=== PATIENT | female | born 1960 | race Caucasian/White ===

== ENCOUNTER 2016-10-25 09:28 | Inpatient (IN) | payer SELFPAY ==
[2016-10-25] VITALS (10 sets, daily range): BP systolic 136–191; BP diastolic 79–110; PULSE 82–103; RESP 18–20; TEMP 97.5–98.7; O2SAT 96–99
[~2016-10-25] VITALS: Ht 172.7 cm; Wt 77.0 kg
[~2016-10-25 09:28] MED LIST: IBUP800 PO; TRAM50TA PO
[2016-10-25] MEDS ORDERED: NITROGLYCERIN 0.4 MG SL 25 TABS/BTL SL STA (09:55)
[2016-10-25] MEDS ORDERED: ASPIRIN 81 MG CHEW TAB PO STA (09:55)
[2016-10-25] MEDS ORDERED: SODIUM CHLOR 0.9% 1000 ML INJ 1,000 ML IV ONE (09:55)
[2016-10-25] MEDS ORDERED: HEPARIN SODIUM - IV 10,000 UNITS/10 ML VIAL IV STA (09:55)
[2016-10-25] MEDS ORDERED: NITROGLYCERIN-D5W 50 MG/250 ML 250 ML IV SCH ×2 (10:00→11:00)
[2016-10-25] MEDS ORDERED: SODIUM CHLORIDE 0.9% FLUSH 10 ML FLUSH IVF PRN (10:00)
--- NOTE | 2016-10-25 10:01 | PD ---
HPI Chief Complaint: STEMI Alert Time Seen by Provider: 09:55 Travel History International Travel<30 days: No Contact w/Intl Traveler<30days: No Traveled to known affect area: No History of Present Illness HPI 56-year-old female with history of previous CAD, presents to the ER today brought in by her son because of chest pains that started at 2 PM yesterday. She states is currently an 8-1/2 out of 10. She states it radiates down both arms. She denies any shortness of breath, fevers, vomiting, abdominal pains, or any other symptoms. Initial EKG shows a ST elevation [place] in the inferior leads. Modifying Factors: None Associated Signs & Symptoms: STEMI alert Risk Factors: CAD PFSH Past Medical History Blood Disorders: No Cancer: No Cardiovascular Problems: Yes Endocrine: No Glaucoma: No Genitourinary: Yes Immune Disorder: No Musculoskeletal: No Neurologic: No Respiratory: No Past Surgical History Gynecologic Surgery: Yes (HYSTERECTOMY) Hysterectomy: Yes Social History Alcohol Use: Yes (SOCIAL) Tobacco Use: Yes (1/2PPD) Substance Use: No Allergies-Medications (Allergen,Severity, Reaction): Coded Allergies: diphenhydramine (Unverified Allergy, Intermediate, rash,hives,itching, ) Reported Meds & Prescriptions Reported Meds & Active Scripts Active Tramadol Hcl (Tramadol HCl) 50 Mg Tab 50 Mg PO Q4H PRN Motrin 800 Mg Tab (Ibuprofen) 800 Mg Tab 800 Mg PO Q8H PRN 10 Days Review of Systems Except as stated in HPI: all other systems reviewed are Neg Physical Exam Narrative GENERAL: Well-developed middle age white female patient currently in moderate distress. Awake and oriented 3. SKIN: Focused skin assessment warm/diaphoretic. HEAD: Atraumatic. Normocephalic. EYES: Pupils equal and round. No scleral icterus. No injection or drainage. ENT: No nasal bleeding or discharge. Mucous membranes pink and moist. NECK: Trachea midline. No JVD. CARDIOVASCULAR: Regular rate and rhythm. No murmur appreciated. Pulses are present and equal bilaterally. RESPIRATORY: No accessory muscle use. Clear to auscultation. Breath sounds equal bilaterally. GASTROINTESTINAL: Abdomen soft, non-tender, nondistended. Hepatic and splenic margins not palpable. MUSCULOSKELETAL: No obvious deformities. No clubbing. No cyanosis. No edema. NEUROLOGICAL: Awake and alert. No obvious cranial nerve deficits. Motor grossly within normal limits. Normal speech. PSYCHIATRIC: Appropriate mood and affect; insight and judgment normal. Data Data Last Documented VS Vital Signs Date Time Temp Pulse Resp B/P Pulse Ox O2 Delivery O2 Flow Rate FiO2 10/25/16 10:00 100 Nasal Cannula 2 10/25/16 09:29 97.9 103 20 191/110 Orders Electrocardiogram (10/25/16 ) Troponin I (10/25/16 09:55) Ckmb (Isoenzyme) Profile (10/25/16 09:55) Complete Blood Count With Diff (10/25/16 09:55) I-Stat Profile (10/25/16 09:55) I-Stat Creatinine (10/25/16 09:55) Calcium (10/25/16 09:55) Magnesium (Mg) (10/25/16 09:55) Prothrombin Time / Inr (Pt) (10/25/16 09:55) Act Partial Throm Time (Ptt) (10/25/16 09:55) B-Type Natriuretic Peptide (10/25/16 09:55) Chest, Single Ap (10/25/16 09:55) Electrocardiogram (10/25/16 09:55) Oxygen Administration (10/25/16 09:55) Iv Access Insert/Monitor (10/25/16 09:55) Oximetry (10/25/16 09:55) Sodium Chlor 0.9% 1000 Ml Inj (Ns 1000 M (10/25/16 09:55) Sodium Chloride 0.9% Flush (Ns Flush) (10/25/16 10:00) Aspirin Chew (Aspirin Chew) (10/25/16 09:55) Nitroglycerin Sl (Nitrostat Sl) (10/25/16 09:55) Nitroglycerin-Dextrose Inj (Nitroglyceri (10/25/16 10:00) Heparin Inj (Heparin Inj) (10/25/16 09:55) MDM Medical Decision Making Medical Screen Exam Complete: Yes Emergency Medical Condition: Yes Medical Record Reviewed: Yes Interpretation(s) EKG shows ST elevations in the inferior leads and depressions in aVL, V1 through the 3. Concerning for ST elevation [place]. Differential Diagnosis STEMI alert Narrative Course STEMI alert protocol was initiated. Case was initially discussed with Dr. Scott who had done a catheterization on her in 2006 but he states that she is not currently actively following up with him and he recommends that on-call ingot car operator takes the case. Patient was seen by Dr. Myrick in the ER with plans for catheterization. Patient admitted to his service as a STEMI. Diagnosis Primary Impression: STEMI (ST elevation myocardial infarction) Admitting Information Admitting Physician Requests: it Darryl Anaya MD Oct 25, 2016 10:01
[2016-10-25 10:16] LABS: I-STAT POTASSIUM 3.1 MMOL/L (3.5-4.9); I-STAT SODIUM 142 MMOL/L (138-146)
[2016-10-25 10:19] LABS: AUTOMATED NEUTROPHIL # 12.2 TH/MM3 (1.8-7.7); BASOPHIL # 0.1 TH/MM3 (0-0.2); BASOPHIL % 0.5 % (0.0-2.0); EOSINOPHIL # 0.1 TH/MM3 (0-0.4); EOSINOPHIL % 0.8 % (0.0-4.0); HEMATOCRIT 49.7 % (35.0-46.0); HEMO FLAGS DIFF FINAL; LYMPH % 14.7 % (9.0-44.0); LYMPHOCYTE # 2.3 TH/MM3 (1.0-4.8); MEAN CELL VOLUME 95.4 FL (80.0-100.0); MEAN CORPUSCULAR HEMOGLOBIN 32.3 PG (27.0-34.0); MEAN CORPUSCULAR HGB CONC 33.9 % (32.0-36.0); PLATELET COUNT 255 TH/MM3 (150-450); RED BLOOD COUNT 5.21 MIL/MM3 (4.00-5.30); RED CELL DISTRIBUTION WIDTH 13.7 % (11.6-17.2); WHITE BLOOD COUNT 15.7 TH/MM3 (4.0-11.0)
[2016-10-25] MEDS ORDERED: ONDANSETRON HCL 4 MG/2 ML VIAL ONE (10:19)
[2016-10-25] MEDS ORDERED: MORPHINE SULFATE 8 MG/ML INJ ONE (10:19)
[2016-10-25] MEDS ORDERED: MIDAZOLAM HCL 2 MG/2 ML VIAL ONE (10:22)
[2016-10-25] MEDS ORDERED: BIVALIRUDIN 250 MG VIAL ONE (10:25)
[2016-10-25 10:27] LABS: APTT (PATIENT) 23.1 SEC (24.3-30.1); PROTHROMBIN TIME - PATIENT 10.5 SEC (9.8-11.6)
--- NOTE | 2016-10-25 10:33 | RADRPT ---
EXAM DATE/TIME: 10/25/2016 09:58 [facility] COMPARISON: CHEST SINGLE AP, March 11, 2014, 9:26. INDICATIONS : Stemi alert. Chest pain today. MEDICAL HISTORY : Unobtainable. SURGICAL HISTORY : Unobtainable. ENCOUNTER: Initial ACUITY: 1 day PAIN SCORE: 10/10 LOCATION: Bilateral chest FINDINGS: A single view of the chest demonstrates the lungs to be symmetrically aerated without evidence of mas s, infiltrate or effusion. The cardiomediastinal contours are unremarkable. Osseous structures are intact. CONCLUSION: Normal examination. Tom Pearce Jr., MD on October 25, 2016 at 10:31 Board Certified Radiologist. This report was verified electronically.
[2016-10-25] MEDS ORDERED: TICAGRELOR 90 MG TAB PO ONE (10:38)
[2016-10-25 10:41] LABS: MAGNESIUM 1.7 MG/DL (1.5-2.5)
[2016-10-25 10:43] LABS: CREATINE KINASE 182 U/L (26-192)
[2016-10-25] MEDS ORDERED: TEMAZEPAM 15 MG CAP PO PRN (11:00)
[2016-10-25] MEDS ORDERED: MISC INFORMATION XX ONE (11:00)
[2016-10-25] MEDS ORDERED: oxyCODONE/ACETAMINOPHEN 5 MG/325 MG TAB PO PRN (11:00)
[2016-10-25] MEDS ORDERED: ONDANSETRON HCL 4 MG/2 ML VIAL IV PRN (11:00)
[2016-10-25] MEDS ORDERED: SODIUM CHLORIDE 0.9% FLUSH 10 ML FLUSH IV FLUSH PRN (11:00)
[2016-10-25 11:04] LABS: CKMB 20.6 NG/ML (0.5-3.6)
--- NOTE | 2016-10-25 11:19 | MH ---
cc: SHEILA BLANKENSHIP M.D. DATE OF ADMISSION: 10/25/2016 ADMITTING DIAGNOSIS: 1. Acute inferoposterior myocardial infarction. 2. Chronic tobacco abuse. CHIEF COMPLAINT Chest pain since 02:00 p.m. yesterday. HISTORY OF PRESENT ILLNESS Zandra Yarbrough is a 56-year-old woman who has not been to a doctor in years. She said she had an angioplasty early after 1989. All I could find in her records here was a cardiac catheterization October 30, [address]. She had 25-40% mid-LAD disease with normal ejection fraction at that time. The patient has continued to smoke a pack a day. She developed acute chest pain about 2 o'clock in the afternoon yesterday which waxed and waned and then became critically severe before she presented to the ER. She was on no medications prior to admission. PAST SURGICAL HISTORY Past surgical history includes a vaginal hysterectomy. ALLERGIES She describes having HIVES ONCE FROM CT SCAN DYE. SOCIAL HISTORY She is . She has a son, Pierre Yarbrough. She smokes as described above. REVIEW OF SYSTEMS Negative for bleeding. The remaining review of systems negative. PHYSICAL EXAMINATION GENERAL: Severely distressed middle-age white female. VITAL SIGNS: Charted. HEENT: Exam unremarkable. NECK: Neck is supple. CHEST: Clear to auscultation. CARDIAC: S1, S2, S4, regular rate and rhythm. ABDOMEN: Soft, nontender. EXTREMITIES: No clubbing, cyanosis or edema. Pulses are intact. EKG Shows an acute inferoposterior STEMI with ST-segment elevation inferiorly as well as V5-V6 and ST depression in AVL and V2. The only leads not showing ST-segment shifting are leads 1 and lead V3 and V4, making this a high-risk infarct. LABORATORY DATA Charted. IMPRESSION Acute inferior STEMI. PLAN Please see labeling specialist procedure note. Right coronary artery has been stented. Will continue aspirin and Brilinta, introduce NANO inhibitor and beta blockers. Hemodynamics and heart rate per minute. Check serum lipid values and add statin therapy. The patient has been counseled to quit smoking. Sheila Blankenship MD VEW/TLL /10:56 AM /11:00 AM
--- NOTE | 2016-10-25 11:31 | MA ---
cc: SHEILA BLANKENSHIP M.D. DATE: 10/25/2016 PROCEDURE PERFORMED Left heart catheterization, left ventriculography, coronary angiography, balloon angioplasty and stenting of the mid right coronary artery, right femoral angiography with Angio-Seal placement. INDICATION FOR PROCEDURE Zandra Yarbrough came in through the ER with an acute inferior STEMI with ST-segment elevation of multiple leads and 10/10 chest pain. She was brought emergently to the laboratory equipment cleaner and prepped and draped in sterile fashion. She did receive 4 of morphine and 1 of Versed IV, but was still very awake. Using 1% lidocaine for local anesthesia a 6.5 Vincentian sheath was easily inserted in the right femoral artery. Left coronary angiography was performed using a left 4 Amisha catheter and then used a right 4 Amsiha guiding catheter to image the right coronary artery. The right coronary artery was found to be occluded. Intravenous Angiomax was started across the occlusion with a BMW wire and then predilated it with a 3.0 x 20 balloon. I then stented the vessel using a 3.5 but 15 mm Resolute stent at 12 atmospheres. This restored POLY-III flow. The patient's chest pain improved. ST-segment elevation persisted. Repeat angiography showed stable vessel. The guiding catheter was removed. Angiography with the right leg was obtained via the sheath followed by uncomplicated Angio-Seal placement. She was loaded with Brilinta. She will be moved to the [facility] floor. There were no complications. FINDINGS HEMODYNAMICS Left ventricular pressure was 160/7 with an end-diastolic pressure of 26. Aortic pressure was 163/87 with a mean of 120. There was no gradient during pullback from the left ventricle to the aorta. LEFT VENTRICULOGRAPHY Left ventriculography shows extensive inferior akinesis. EF is only 40%. CORONARY ANGIOGRAPHY The left main coronary artery is normal. The left anterior descending artery has about 20% mid irregularity. The diagonal branch has irregularities only. The circumflex artery has about 30% mid stenosis involving the proximal circumflex and the origin of the single major marginal branch. The right coronary artery is totally occluded in its midsegment. RESULTS OF STENTING Following stenting of the mid right coronary artery there is a 0% residual stenosis with POLY-III flow. There is diffuse disease of the proximal right coronary artery leading up to the stent but this was felt not to need intervention. That segment of disease appears to only be about 30%. CONCLUSIONS 1. Moderate LV dysfunction from an inferior STEMI. 2. Single-vessel occlusion of the right coronary artery successfully stented with a drug-eluting stent. PLAN Will continue aspirin and Brilinta. Will introduce NANO inhibitor and beta brian as hemodynamics permit. The patient has been counseled to quit smoking. Will check her serum lipids and initiate statin therapy as appropriate. MD GRISEL Jenkins/CHITO /10:52 AM /11:16 AM
[2016-10-25] MEDS ORDERED: BIVALIRUDIN INJ 250 MG in SODIUM CHLORIDE 0.9% INJ 50 ML IV SCH (14:00)
[2016-10-25] MEDS ORDERED: SODIUM CHLOR 0.9% 1000 ML INJ 1,000 ML IV SCH (14:00)
[2016-10-25] MEDS ORDERED: IOHEXOL 350 MG/ML 100 ML BTL (for Cath Lab) OTHER ONE (14:16)
--- NOTE | 2016-10-25 14:59 | PD.CONS ---
[facility] By Dr. Yang Myrick Reason for Consult Medical management Primary Care Physician No Primary Care Physician Diagnoses: History of Present Illness This is a pleasant 56 y/o Female with previous CAD, presents to the ER today brought in by her son because of chest pains that started at 2 PM yesterday, Seen by automotive sales specialist with Diagnosis of Acute Inferoposterior FL, as per Cardiology record the patient Angioplasty early after 1989, Cardiac Catheterization October, EKG with inferoposterior STEMI with ST segment elevation inferiorly as well as V5-V6 and ST depression in AVL and V2 , Status post PCI and Right Coronary Artery Stent, recommended to continue Aspirin, Brilinta, NANO inhibitor and Beta Blockers started, Seen in her bedroom no complaint, denies chest pain. strongly recommended to stop smoking, get good habits exercise and diet. Review of Systems Constitutional: DENIES: Fever, Chills, Change in appetite Endocrine: DENIES: Heat/cold intolerance Eyes: DENIES: Blurred vision, Eye pain Except as stated in HPI: all other systems reviewed are Neg Past Family Social History Allergies: Coded Allergies: diphenhydramine (Unverified Allergy, Intermediate, rash,hives,itching, ) Past Medical History CAD Past Surgical History LUCÍA Reported Medications Reported Meds & Active Scripts Active No Active Prescriptions or Reported Medications Active Ordered Medications Current Medications Medications (Trade) Dose Ordered Sig/Giulia Route Start Time Stop Time Status Last Admin (NS Flush) 2 ml UNSCH PRN IVF 10/25/16 10:00 (NS Flush) 2 ml UNSCH PRN IV FLUSH 10/25/16 11:00 (NS Flush) 2 ml BID IV FLUSH 10/25/16 21:00 (Tylenol) 325 mg Q4H PRN PO 10/25/16 11:00 (Percocet 5-325 Mg) 1 tab Q4H PRN PO 10/25/16 11:00 (Restoril) 15 mg HS PRN PO 10/25/16 11:00 (Aspirin Chew) 81 mg DAILY PO 10/26/16 09:00 Ticagrelor 90 mg 90 mg BID PO 10/26/16 09:00 (Nitroglycerin-Dextrose Inj) 250 ml @ 0 mls/hr TITRATE IV 10/25/16 11:00 (Zofran Inj) 4 mg Q4H PRN IV 10/25/16 11:00 (Coreg) 3.125 mg Q8HR PO 10/25/16 14:00 (Prinivil) 5 mg DAILY PO 10/26/16 09:00 Family History Mother with CAD Father with Cancer do not know which one. Social History Alcohol abuse socially Tobacco dependence half pack daily. Physical Exam Vital Signs Vital Signs Date Time Temp Pulse Resp B/P Pulse Ox O2 Delivery O2 Flow Rate FiO2 10/25/16 10:00 100 Nasal Cannula 2 10/25/16 09:29 97.9 103 20 191/110 97 Room Air Physical Exam GENERAL: Well-developed, no acute distress. SKIN: Focused skin assessment warm/diaphoretic. HEAD: Atraumatic. Normocephalic. EYES: Pupils equal and round. No scleral icterus. No injection or drainage. ENT: No nasal bleeding or discharge. Mucous membranes pink and moist. NECK: Trachea midline. No JVD. CARDIOVASCULAR: Regular rate and rhythm. No murmur appreciated. Pulses are present and equal bilaterally. RESPIRATORY: No accessory muscle use. Clear to auscultation. Breath sounds equal bilaterally. GASTROINTESTINAL: Abdomen soft, non-tender, nondistended. Hepatic and splenic margins not palpable. MUSCULOSKELETAL: No obvious deformities.Right inguinal area dressed, no hemorrhage, no ecchymosis. NEUROLOGICAL: Awake and alert. No obvious cranial nerve deficits. Motor grossly within normal limits. Normal speech. PSYCHIATRIC: Appropriate mood and affect; insight and judgment normal. Laboratory Laboratory Tests Test 10/25/16 09:55 White Blood Count 15.7 Red Blood Count 5.21 Hemoglobin 16.9 Bedside Hemoglobin 17.3 Hematocrit 49.7 Bedside Hematocrit 51.0 Mean Corpuscular Volume 95.4 Mean Corpuscular Hemoglobin 32.3 Mean Corpuscular Hemoglobin 33.9 Concent Red Cell Distribution Width 13.7 Platelet Count 255 Mean Platelet Volume 10.5 Neutrophils (%) (Auto) 78.0 Lymphocytes (%) (Auto) 14.7 Monocytes (%) (Auto) 6.0 Eosinophils (%) (Auto) 0.8 Basophils (%) (Auto) 0.5 Neutrophils # (Auto) 12.2 Lymphocytes # (Auto) 2.3 Monocytes # (Auto) 0.9 Eosinophils # (Auto) 0.1 Basophils # (Auto) 0.1 CBC Comment DIFF FINAL Differential Comment Prothrombin Time 10.5 Prothromb Time International 1.0 Ratio Activated Partial 23.1 Thromboplast Time Bedside Sodium 142 Bedside Potassium 3.1 Bedside Chloride 104 Bedside Blood Urea Nitrogen 11 Bedside Creatinine 0.7 Bedside Glucose 153 Calcium Level 10.8 Magnesium Level 1.7 Total Creatine Kinase 182 Creatine Kinase MB 20.6 Troponin I 1.78 B-Type Natriuretic Peptide 131 Result Diagram: 10/25/16954 Imaging Last Impressions Chest X-Ray 10/25/16954 Signed Impressions: Service Date/Time: Tuesday, October 25, 2016 09:58 - CONCLUSION: Normal examination. Tom Pearce Jr., MD Assessment and Plan Assessment and Plan 1. STEMI as Acute Inferoposterior FL, as per Cardiology record the patient Angioplasty early after 1989, Cardiac Catheterization October, EKG with inferoposterior STEMI with ST segment elevation inferiorly as well as V5-V6 and ST depression in AVL and V2, Status post PCI and Right Coronary Artery Stent, recommended to continue Aspirin, Brilinta, NANO inhibitor and Beta Blockers started. 2. Tobacco dependence strongly recommended to stop smoking, not possible to give Nicotine patch due to ACS 3. History of Hyperlipidemia DVT prophylaxis SCDs Laboratory TSH, Free T4, Lipid profile, hemoglobin A1C, Vitamin B1, Vitamin D. follow renal function in am tomorrow Walter Mora MD Oct 25, 2016 14:59
[2016-10-25] MEDS: RESP: IPRATROPIUM 0.5 MG/2.5 ML NEB NEB SCH ×2 (16:47→19:59)
[2016-10-25] MEDS: guaiFENesin E.R. 600 MG TAB PO SCH (19:59)
[2016-10-25] MEDS: SODIUM CHLORIDE 0.9% FLUSH 10 ML FLUSH IV FLUSH SCH (19:59)
[2016-10-25] MEDS: ACETAMINOPHEN 325 MG TAB PO PRN (20:03)
[2016-10-25 21:34] LABS: FREE T4 1.19 NG/DL (0.76-1.46)
[2016-10-25] MEDS: CARVEDILOL 3.125 MG TAB PO SCH (22:05)
[2016-10-26] VITALS (19 sets, daily range): BP systolic 93–125; BP diastolic 67–80; PULSE 76–109; RESP 18; TEMP 98.2–98.7; O2SAT 95–99
[2016-10-26] MEDS: RESP: IPRATROPIUM 0.5 MG/2.5 ML NEB NEB SCH ×6 (00:05→19:46)
[2016-10-26 04:18] LABS: AUTOMATED NEUTROPHIL # 10.1 TH/MM3 (1.8-7.7); BASOPHIL # 0.1 TH/MM3 (0-0.2); BASOPHIL % 0.4 % (0.0-2.0); EOSINOPHIL # 0.1 TH/MM3 (0-0.4); HEMATOCRIT 42.9 % (35.0-46.0); HEMO FLAGS DIFF FINAL; LYMPH % 20.5 % (9.0-44.0); MEAN CELL VOLUME 94.5 FL (80.0-100.0); MEAN CORPUSCULAR HEMOGLOBIN 32.7 PG (27.0-34.0); MEAN CORPUSCULAR HGB CONC 34.6 % (32.0-36.0); MONO % 8.9 % (0.0-8.0); NEUT % 69.2 % (16.0-70.0); PLATELET COUNT 199 TH/MM3 (150-450); RED BLOOD COUNT 4.54 MIL/MM3 (4.00-5.30); RED CELL DISTRIBUTION WIDTH 13.2 % (11.6-17.2); WHITE BLOOD COUNT 14.7 TH/MM3 (4.0-11.0)
[2016-10-26 05:10] LABS: BICARBONATE 26.9 MEQ/L (21.0-32.0); HDL CHOLESTEROL 28.3 MG/DL (40.0-60.0)
[2016-10-26 05:15] LABS: POTASSIUM 2.9 MEQ/L (3.5-5.1)
[2016-10-26 05:33] LABS: CKMB 120.9 NG/ML (0.5-3.6)
[2016-10-26] MEDS ORDERED: POTASSIUM CHLORIDE 20 MEQ CONTROLLED RELEASE TAB PO ONE ×2 (06:00→15:00)
[2016-10-26] MEDS: POTASSIUM CHLOR 20 MEQ PREMIX 100 ML IV SCH ×2 (06:15→08:00)
[2016-10-26] MEDS: CARVEDILOL 3.125 MG TAB PO SCH ×3 (06:17→21:48)
[2016-10-26] MEDS: ACETAMINOPHEN 325 MG TAB PO PRN ×2 (08:23→21:51)
[2016-10-26] MEDS: ASPIRIN 81 MG CHEW TAB PO SCH (08:23)
[2016-10-26] MEDS: LISINOPRIL 5 MG TAB PO SCH (08:23)
[2016-10-26] MEDS: TICAGRELOR 90 MG TAB PO SCH ×2 (08:24→21:48)
[2016-10-26] MEDS: SODIUM CHLORIDE 0.9% FLUSH 10 ML FLUSH IV FLUSH SCH ×2 (08:24→21:50)
[2016-10-26] MEDS: guaiFENesin E.R. 600 MG TAB PO SCH ×2 (08:24→21:00)
--- NOTE | 2016-10-26 08:55 | EKG ---
Date Performed: 10/26/2016 Time Performed: 06:31:04 PTAGE: 56 years EKG: CONSIDER ACUTE ST ELEVATION PR Sinus rhythm Inferior ST elevation, CONSIDER ACUTE INFARCT Anteroseptal ST depression is probably reciprocal to i nferior infarct ST junctional depression is nonspecific Abnormal ECG PREVIOUS TRACING : 10/25/2016 09.48 Compared to prior tracing no significant change DOCTOR: Terry Rhodes Interpretating Date/Time 10/26/2016 08:51:28
--- NOTE | 2016-10-26 10:22 | PD.CARD.PN ---
Subjective Subjective Remarks no angina Objective Medications Current Medications Medications (Trade) Dose Ordered Sig/Giulia Route Start Time Stop Time Status Last Admin (NS Flush) 2 ml UNSCH PRN IVF 10/25/16 10:00 (NS Flush) 2 ml UNSCH PRN IV FLUSH 10/25/16 11:00 (NS Flush) 2 ml BID IV FLUSH 10/25/16 21:00 10/26/16 08:24 (Tylenol) 325 mg Q4H PRN PO 10/25/16 11:00 10/26/16 08:23 (Percocet 5-325 Mg) 1 tab Q4H PRN PO 10/25/16 11:00 (Restoril) 15 mg HS PRN PO 10/25/16 11:00 (Aspirin Chew) 81 mg DAILY PO 10/26/16 09:00 10/26/16 08:23 Ticagrelor 90 mg 90 mg BID PO 10/26/16 09:00 10/26/16 08:24 (Nitroglycerin-Dextrose Inj) 250 ml @ 0 mls/hr TITRATE IV 10/25/16 11:00 (Zofran Inj) 4 mg Q4H PRN IV 10/25/16 11:00 10/25/16 19:59 (Coreg) 3.125 mg Q8HR PO 10/25/16 14:00 10/26/16 06:17 (Prinivil) 5 mg DAILY PO 10/26/16 09:00 10/26/16 08:23 (Mucinex Er) 600 mg BID PO 10/25/16 21:00 10/26/16 08:24 Vital Signs / I&O Vital Signs Date Time Temp Pulse Resp B/P Pulse Ox O2 Delivery O2 Flow Rate FiO2 10/26/16 08:00 98.3 94 18 118/80 96 10/26/16 06:00 86 10/26/16 05:00 86 10/26/16 04:00 90 10/26/16 03:20 97 10/26/16 03:00 98.7 90 18 125/69 97 10/26/16 03:00 109 10/26/16 02:00 82 10/26/16 01:00 98 10/26/16 00:08 97 10/26/16 00:00 80 10/25/16 23:00 98.7 89 18 136/79 98 10/25/16 23:00 92 10/25/16 22:00 86 10/25/16 21:00 84 10/25/16 20:00 86 10/25/16 19:59 96 21 10/25/16 19:00 93 10/25/16 19:00 97.5 83 18 147/87 98 10/25/16 16:51 98 Nasal Cannula 2.00 10/25/16 16:00 97.7 82 18 162/96 99 10/25/16 11:00 97.7 98 18 158/101 97 I/O 10/25/16 10/25/16 10/25/16 10/26/16 10/26/16 10/26/16 06:59 14:59 22:59 06:59 14:59 22:59 Intake Total 240 ml Output Total 600 ml Balance -360 ml Intake Oral 240 ml Output Urine Total 600 ml Physical Exam GENERAL: Well developed, well nourished. No acute distress. HEENT: Jugular venous pressure is normal. CHEST: Lungs clear to auscultation bilaterally. Unlabored respiratory effort. CARDIAC: Regular rate and rhythm without S3, S4, or murmur. ABDOMEN: Soft, nontender, no hepatosplenomegaly. Bowel sounds present. EXTREMITIES: No clubbing, cyanosis, or edema. Laboratory Laboratory Tests Test 10/26/16 03:56 White Blood Count 14.7 TH/MM3 Red Blood Count 4.54 MIL/MM3 Hemoglobin 14.8 GM/DL Hematocrit 42.9 % Mean Corpuscular Volume 94.5 FL Mean Corpuscular Hemoglobin 32.7 PG Mean Corpuscular Hemoglobin 34.6 % Concent Red Cell Distribution Width 13.2 % Platelet Count 199 TH/MM3 Mean Platelet Volume 10.2 FL Neutrophils (%) (Auto) 69.2 % Lymphocytes (%) (Auto) 20.5 % Monocytes (%) (Auto) 8.9 % Eosinophils (%) (Auto) 1.0 % Basophils (%) (Auto) 0.4 % Neutrophils # (Auto) 10.1 TH/MM3 Lymphocytes # (Auto) 3.0 TH/MM3 Monocytes # (Auto) 1.3 TH/MM3 Eosinophils # (Auto) 0.1 TH/MM3 Basophils # (Auto) 0.1 TH/MM3 CBC Comment DIFF FINAL Differential Comment Sodium Level 140 MEQ/L Potassium Level 2.9 MEQ/L Chloride Level 105 MEQ/L Carbon Dioxide Level 26.9 MEQ/L Anion Gap 8 MEQ/L Blood Urea Nitrogen 14 MG/DL Creatinine 0.67 MG/DL Estimat Glomerular Filtration 92 ML/MIN Rate Random Glucose 106 MG/DL Calcium Level 9.0 MG/DL Total Creatine Kinase 1153 U/L Creatine Kinase MB 120.9 NG/ML Creatine Kinase MB % 10.5 % Triglycerides Level 317 MG/DL Cholesterol Level 214 MG/DL LDL Cholesterol 122 MG/DL HDL Cholesterol 28.3 MG/DL Cholesterol/HDL Ratio 7.56 RATIO Assessment and Plan Problem List: (1) ST elevation (STEMI) myocardial infarction involving right coronary artery (2) Tobacco abuse (3) Stented coronary artery (4) Hypokalemia Assessment and Plan: replete Yang Myrick MD Oct 26, 2016 10:22
--- NOTE | 2016-10-26 15:57 | HHI.PR ---
Subjective Remarks This is a pleasant 56 y/o Female with previous CAD, presents to the ER today brought in by her son because of chest pains that started at 2 PM yesterday, Seen by customer care specialist with Diagnosis of Acute Inferoposterior [place], as per Cardiology record the patient Angioplasty early after 1989, Cardiac Catheterization October, EKG with inferoposterior STEMI with ST segment elevation inferiorly as well as V5-V6 and ST depression in AVL and V2 , Status post PCI and Right Coronary Artery Stent, recommended to continue Aspirin, Brilinta, NANO inhibitor and Beta Blockers started, Seen in her bedroom no complaint, denies chest pain. strongly recommended to stop smoking, get good habits exercise and diet. 10/26: Stable seen in her bedroom, started on replacement by attending physician , Doctor Ramez no nausea,vomit or diarrhea. Objective Vital Signs Date Time Temp Pulse Resp B/P Pulse Ox O2 Delivery O2 Flow Rate FiO2 10/26/16 11:56 99 10/26/16 08:00 98.3 94 18 118/80 96 10/26/16 06:00 86 10/26/16 05:00 86 10/26/16 04:00 90 10/26/16 03:20 97 10/26/16 03:00 98.7 90 18 125/69 97 10/26/16 03:00 109 10/26/16 02:00 82 10/26/16 01:00 98 10/26/16 00:08 97 10/26/16 00:00 80 10/25/16 23:00 98.7 89 18 136/79 98 10/25/16 23:00 92 10/25/16 22:00 86 10/25/16 21:00 84 10/25/16 20:00 86 10/25/16 19:59 96 21 10/25/16 19:00 93 10/25/16 19:00 97.5 83 18 147/87 98 10/25/16 16:51 98 Nasal Cannula 2.00 10/25/16 16:00 97.7 82 18 162/96 99 I/O 10/25/16 10/25/16 10/25/16 10/26/16 10/26/16 10/26/16 07:00 15:00 23:00 07:00 15:00 23:00 Intake Total 240 ml Output Total 600 ml Balance -360 ml Intake Oral 240 ml Output Urine Total 600 ml Result Diagram: 10/26/16 0356 10/26/16 0356 Imaging Last Impressions Chest X-Ray 10/25/16 0955 Signed Impressions: Service Date/Time: Tuesday, October 25, 2016 09:58 - CONCLUSION: Normal examination. Tom Pearce Jr., MD Procedures Status post Cardiac Cath and Right Coronary Artery Stent Other Results Laboratory Tests Test 10/25/16 10/26/16 09:55 03:56 Bedside Hemoglobin 17.3 G/DL Bedside Hematocrit 51.0 % Prothrombin Time 10.5 SEC Prothromb Time International 1.0 RATIO Ratio Activated Partial 23.1 SEC Thromboplast Time Bedside Sodium 142 MMOL/L Bedside Potassium 3.1 MMOL/L Bedside Chloride 104 MMOL/L Bedside Blood Urea Nitrogen 11 MG/DL Bedside Creatinine 0.7 MG/DL Bedside Glucose 153 MG/DL Magnesium Level 1.7 MG/DL Troponin I 1.78 NG/ML B-Type Natriuretic Peptide 131 PG/ML Vitamin B12 Level 374 PG/ML Free Thyroxine 1.19 NG/DL Thyroid Stimulating Hormone 1.080 uIU/ML 3rd Gen White Blood Count 14.7 TH/MM3 Red Blood Count 4.54 MIL/MM3 Hemoglobin 14.8 GM/DL Hematocrit 42.9 % Mean Corpuscular Volume 94.5 FL Mean Corpuscular Hemoglobin 32.7 PG Mean Corpuscular Hemoglobin 34.6 % Concent Red Cell Distribution Width 13.2 % Platelet Count 199 TH/MM3 Mean Platelet Volume 10.2 FL Neutrophils (%) (Auto) 69.2 % Lymphocytes (%) (Auto) 20.5 % Monocytes (%) (Auto) 8.9 % Eosinophils (%) (Auto) 1.0 % Basophils (%) (Auto) 0.4 % Neutrophils # (Auto) 10.1 TH/MM3 Lymphocytes # (Auto) 3.0 TH/MM3 Monocytes # (Auto) 1.3 TH/MM3 Eosinophils # (Auto) 0.1 TH/MM3 Basophils # (Auto) 0.1 TH/MM3 CBC Comment DIFF FINAL Differential Comment Sodium Level 140 MEQ/L Potassium Level 2.9 MEQ/L Chloride Level 105 MEQ/L Carbon Dioxide Level 26.9 MEQ/L Anion Gap 8 MEQ/L Blood Urea Nitrogen 14 MG/DL Creatinine 0.67 MG/DL Estimat Glomerular Filtration 92 ML/MIN Rate Random Glucose 106 MG/DL Calcium Level 9.0 MG/DL Total Creatine Kinase 1153 U/L Creatine Kinase MB 120.9 NG/ML Creatine Kinase MB % 10.5 % Triglycerides Level 317 MG/DL Cholesterol Level 214 MG/DL LDL Cholesterol 122 MG/DL HDL Cholesterol 28.3 MG/DL Cholesterol/HDL Ratio 7.56 RATIO Objective Remarks GENERAL: Well-developed, no acute distress. SKIN: Focused skin assessment warm/diaphoretic. HEAD: Atraumatic. Normocephalic. EYES: Pupils equal and round. No scleral icterus. No injection or drainage. ENT: No nasal bleeding or discharge. Mucous membranes pink and moist. NECK: Trachea midline. No JVD. CARDIOVASCULAR: Regular rate and rhythm. No murmur appreciated. Pulses are present and equal bilaterally. RESPIRATORY: No accessory muscle use. Clear to auscultation. Breath sounds equal bilaterally. GASTROINTESTINAL: Abdomen soft, non-tender, nondistended. Hepatic and splenic margins not palpable. MUSCULOSKELETAL: No obvious deformities.Right inguinal area dressed, no hemorrhage, no ecchymosis. NEUROLOGICAL: Awake and alert. No obvious cranial nerve deficits. Motor grossly within normal limits. Normal speech. PSYCHIATRIC: Appropriate mood and affect; insight and judgment normal. Medications and IVs Current Medications Medications (Trade) Dose Ordered Sig/Giulia Route Start Time Stop Time Status Last Admin (NS Flush) 2 ml UNSCH PRN IVF 10/25/16 10:00 (NS Flush) 2 ml UNSCH PRN IV FLUSH 10/25/16 11:00 (NS Flush) 2 ml BID IV FLUSH 10/25/16 21:00 10/26/16 08:24 (Tylenol) 325 mg Q4H PRN PO 10/25/16 11:00 10/26/16 08:23 (Percocet 5-325 Mg) 1 tab Q4H PRN PO 10/25/16 11:00 (Restoril) 15 mg HS PRN PO 10/25/16 11:00 (Aspirin Chew) 81 mg DAILY PO 10/26/16 09:00 10/26/16 08:23 Ticagrelor 90 mg 90 mg BID PO 10/26/16 09:00 10/26/16 08:24 (Nitroglycerin-Dextrose Inj) 250 ml @ 0 mls/hr TITRATE IV 10/25/16 11:00 (Zofran Inj) 4 mg Q4H PRN IV 10/25/16 11:00 10/25/16 19:59 (Coreg) 3.125 mg Q8HR PO 10/25/16 14:00 10/26/16 06:17 (Prinivil) 5 mg DAILY PO 10/26/16 09:00 10/26/16 08:23 (Mucinex Er) 600 mg BID PO 10/25/16 21:00 10/26/16 08:24 Atorvastatin Calcium 40 mg 40 mg DAILY PO 10/27/16 09:00 (NS 1000 ml Inj) 1,000 ml @ 125 mls/hr Q8H IV 10/26/16 15:00 A/P Assessment and Plan 1. STEMI as Acute Inferoposterior [place], as per Cardiology record the patient Angioplasty early after 1989, Cardiac Catheterization October, EKG with inferoposterior STEMI with ST segment elevation inferiorly as well as V5-V6 and ST depression in AVL and V2, Status post PCI and Right Coronary Artery Stent, recommended to continue Aspirin, Brilinta, NANO inhibitor and Beta Blockers started. 2. Tobacco dependence strongly recommended to stop smoking, not possible to give Nicotine patch due to ACS 3. History of Hyperlipidemia LDL elevated will need to keep LDL below 70 started on Atorvastatin by Cardiology asked for Hepatic function panel to have baseline. 4. electrolyte derangement replacing at this time. DVT prophylaxis SCDs Discharge Planning Once cleared by customer care specialist. Walter Mora MD Oct 26, 2016 15:56
[2016-10-26 16:15] LABS: MAGNESIUM 2.1 MG/DL (1.5-2.5)
--- NOTE | 2016-10-26 16:48 | EKG ---
Date Performed: 10/25/2016 Time Performed: 09:48:12 PTAGE: 56 years EKG: Sinus rhythm INFERIOR MYOCARDIAL INFARCTION ST ELEVATION, CONSIDER LATERAL INJURY ACUTE HI PREVIOUS TRACING : 03/11/2014 08.55 Compared to the previous tracing acute inferolateral mi is new DOCTOR: Terry Rhodes Interpretating Date/Time 10/26/2016 16:47:48
[2016-10-26] MEDS: SODIUM CHLOR 0.9% 1000 ML INJ 1,000 ML IV SCH ×2 (17:15→23:00)
[2016-10-26 20:15] LABS: INDIRECT BILIRUBIN 0.1 MG/DL (0.0-0.8); TOTAL BILIRUBIN ADULT 0.2 MG/DL (0.2-1.0)
[2016-10-27] VITALS (15 sets, daily range): BP systolic 83–115; BP diastolic 68–73; PULSE 71–90; RESP 16–18; TEMP 97.3–97.8; O2SAT 78–98
[2016-10-27] MEDS: RESP: IPRATROPIUM 0.5 MG/2.5 ML NEB NEB SCH ×3 (00:12→07:58)
[2016-10-27] MEDS: ACETAMINOPHEN 325 MG TAB PO PRN (03:11)
[2016-10-27] MEDS: CARVEDILOL 3.125 MG TAB PO SCH (06:11)
[2016-10-27] MEDS: guaiFENesin E.R. 600 MG TAB PO SCH (09:00)
[2016-10-27] MEDS: LISINOPRIL 5 MG TAB PO SCH (09:00)
[2016-10-27] MEDS: SODIUM CHLORIDE 0.9% FLUSH 10 ML FLUSH IV FLUSH SCH (09:00)
[2016-10-27] MEDS: SODIUM CHLOR 0.9% 1000 ML INJ 1,000 ML IV SCH (09:00)
[2016-10-27] MEDS ORDERED: ATORVASTATIN 40 MG TAB PO SCH (09:00)
[2016-10-27] MEDS: ASPIRIN 81 MG CHEW TAB PO SCH (09:07)
[2016-10-27] MEDS: TICAGRELOR 90 MG TAB PO SCH (09:07)
--- NOTE | 2016-10-27 09:10 | HHI.PR ---
Subjective Remarks This is a pleasant 56 y/o Female with previous CAD, presents to the ER today brought in by her son because of chest pains that started at 2 PM yesterday, Seen by documentation specialist with Diagnosis of Acute Inferoposterior [place], as per Cardiology record the patient Angioplasty early after 1989, Cardiac Catheterization October, EKG with inferoposterior STEMI with ST segment elevation inferiorly as well as V5-V6 and ST depression in AVL and V2 , Status post PCI and Right Coronary Artery Stent, recommended to continue Aspirin, Brilinta, NANO inhibitor and Beta Blockers started, Seen in her bedroom no complaint, denies chest pain. strongly recommended to stop smoking, get good habits exercise and diet. 10/27: Seen in her bedroom, already recommended for discharge by documentation specialist, status post cardiac Cath and stent placement, will continue Aspirin and Brilinta given scripts. no chest pain, no hemorrhage bruit or ecchymosis on right inguinal area. follow with documentation specialist in two weeks. Objective Vital Signs Date Time Temp Pulse Resp B/P Pulse Ox O2 Delivery O2 Flow Rate FiO2 10/27/16 07:58 98 10/27/16 07:00 79 10/27/16 06:00 86 10/27/16 05:00 71 10/27/16 04:00 75 10/27/16 03:00 97.8 86 18 83/68 97 10/27/16 03:00 89 10/27/16 02:00 74 10/27/16 01:00 81 10/27/16 00:00 86 10/26/16 23:00 80 10/26/16 23:00 98.7 80 18 98/70 96 10/26/16 22:00 80 10/26/16 21:00 76 10/26/16 20:00 94 10/26/16 19:48 95 10/26/16 19:00 98.7 81 18 93/67 98 10/26/16 19:00 93 10/26/16 16:00 98.6 97 18 124/71 95 10/26/16 12:00 98.2 85 18 96/70 97 10/26/16 11:56 99 I/O 10/26/16 10/26/16 10/26/16 10/27/16 10/27/16 10/27/16 07:00 15:00 23:00 07:00 15:00 23:00 Intake Total 240 ml 720 ml Output Total 600 ml Balance -360 ml 720 ml Intake Oral 240 ml 720 ml Output Urine Total 600 ml # Voids 2 Result Diagram: 10/26/16 0356 10/27/16 0624 Imaging Last Impressions Chest X-Ray 10/25/16 0955 Signed Impressions: Service Date/Time: Tuesday, October 25, 2016 09:58 - CONCLUSION: Normal examination. Tom Pearce Jr., MD Procedures Status post Cardiac Cath and Right Coronary Artery Stent Other Results Laboratory Tests Test 10/25/16 10/26/16 10/26/16 10/26/16 09:55 03:56 15:33 18:58 Bedside Hemoglobin 17.3 G/DL Bedside Hematocrit 51.0 % Prothrombin Time 10.5 SEC Prothromb Time International 1.0 RATIO Ratio Activated Partial 23.1 SEC Thromboplast Time Bedside Sodium 142 MMOL/L Bedside Potassium 3.1 MMOL/L Bedside Chloride 104 MMOL/L Bedside Blood Urea Nitrogen 11 MG/DL Bedside Creatinine 0.7 MG/DL Bedside Glucose 153 MG/DL Troponin I 1.78 NG/ML B-Type Natriuretic Peptide 131 PG/ML Vitamin B12 Level 374 PG/ML Free Thyroxine 1.19 NG/DL Thyroid Stimulating Hormone 1.080 uIU/ML 3rd Gen White Blood Count 14.7 TH/MM3 Red Blood Count 4.54 MIL/MM3 Hemoglobin 14.8 GM/DL Hematocrit 42.9 % Mean Corpuscular Volume 94.5 FL Mean Corpuscular Hemoglobin 32.7 PG Mean Corpuscular Hemoglobin 34.6 % Concent Red Cell Distribution Width 13.2 % Platelet Count 199 TH/MM3 Mean Platelet Volume 10.2 FL Neutrophils (%) (Auto) 69.2 % Lymphocytes (%) (Auto) 20.5 % Monocytes (%) (Auto) 8.9 % Eosinophils (%) (Auto) 1.0 % Basophils (%) (Auto) 0.4 % Neutrophils # (Auto) 10.1 TH/MM3 Lymphocytes # (Auto) 3.0 TH/MM3 Monocytes # (Auto) 1.3 TH/MM3 Eosinophils # (Auto) 0.1 TH/MM3 Basophils # (Auto) 0.1 TH/MM3 CBC Comment DIFF FINAL Differential Comment Sodium Level 140 MEQ/L Chloride Level 105 MEQ/L Carbon Dioxide Level 26.9 MEQ/L Anion Gap 8 MEQ/L Blood Urea Nitrogen 14 MG/DL Creatinine 0.67 MG/DL Estimat Glomerular Filtration 92 ML/MIN Rate Random Glucose 106 MG/DL Calcium Level 9.0 MG/DL Total Creatine Kinase 1153 U/L Creatine Kinase MB 120.9 NG/ML Creatine Kinase MB % 10.5 % Triglycerides Level 317 MG/DL Cholesterol Level 214 MG/DL LDL Cholesterol 122 MG/DL HDL Cholesterol 28.3 MG/DL Cholesterol/HDL Ratio 7.56 RATIO Phosphorus Level 3.1 MG/DL Magnesium Level 2.1 MG/DL Total Bilirubin 0.2 MG/DL Direct Bilirubin 0.1 MG/DL Indirect Bilirubin 0.1 MG/DL Aspartate Amino Transf 152 U/L (AST/SGOT) Alanine Aminotransferase 51 U/L (ALT/SGPT) Alkaline Phosphatase 86 U/L Total Protein 6.5 GM/DL Albumin 3.2 GM/DL Test 10/27/16 06:24 Potassium Level 3.6 MEQ/L Objective Remarks GENERAL: Well-developed, no acute distress. SKIN: Focused skin assessment warm/diaphoretic. HEAD: Atraumatic. Normocephalic. EYES: Pupils equal and round. No scleral icterus. No injection or drainage. ENT: No nasal bleeding or discharge. Mucous membranes pink and moist. NECK: Trachea midline. No JVD. CARDIOVASCULAR: Regular rate and rhythm. No murmur appreciated. Pulses are present and equal bilaterally. RESPIRATORY: No accessory muscle use. Clear to auscultation. Breath sounds equal bilaterally. GASTROINTESTINAL: Abdomen soft, non-tender, nondistended. Hepatic and splenic margins not palpable. MUSCULOSKELETAL: No obvious deformities.Right inguinal area dressed, no hemorrhage, no ecchymosis. NEUROLOGICAL: Awake and alert. No obvious cranial nerve deficits. Motor grossly within normal limits. Normal speech. PSYCHIATRIC: Appropriate mood and affect; insight and judgment normal. Medications and IVs Current Medications Medications (Trade) Dose Ordered Sig/Giulia Route Start Time Stop Time Status Last Admin (NS Flush) 2 ml UNSCH PRN IVF 10/25/16 10:00 (NS Flush) 2 ml UNSCH PRN IV FLUSH 10/25/16 11:00 (NS Flush) 2 ml BID IV FLUSH 10/25/16 21:00 10/26/16 21:50 (Tylenol) 325 mg Q4H PRN PO 10/25/16 11:00 10/27/16 03:11 (Percocet 5-325 Mg) 1 tab Q4H PRN PO 10/25/16 11:00 (Restoril) 15 mg HS PRN PO 10/25/16 11:00 (Aspirin Chew) 81 mg DAILY PO 10/26/16 09:00 10/27/16 09:07 Ticagrelor 90 mg 90 mg BID PO 10/26/16 09:00 10/27/16 09:07 (Nitroglycerin-Dextrose Inj) 250 ml @ 0 mls/hr TITRATE IV 10/25/16 11:00 (Zofran Inj) 4 mg Q4H PRN IV 10/25/16 11:00 10/25/16 19:59 (Coreg) 3.125 mg Q8HR PO 10/25/16 14:00 10/27/16 06:11 (Prinivil) 5 mg DAILY PO 10/26/16 09:00 10/27/16 09:00 (Mucinex Er) 600 mg BID PO 10/25/16 21:00 10/27/16 09:00 Atorvastatin Calcium 40 mg 40 mg DAILY PO 10/27/16 09:00 10/27/16 09:07 (NS 1000 ml Inj) 1,000 ml @ 125 mls/hr Q8H IV 10/26/16 15:00 10/27/16 09:00 A/P Assessment and Plan 1. STEMI as Acute Inferoposterior [place], as per Cardiology record the patient Angioplasty early after 1989, Cardiac Catheterization October, EKG with inferoposterior STEMI with ST segment elevation inferiorly as well as V5-V6 and ST depression in AVL and V2, Status post PCI and Right Coronary Artery Stent, recommended to continue Aspirin, Brilinta, NANO inhibitor and Beta Blockers started. okay to discharge by documentation specialist. 2. Tobacco dependence strongly recommended to stop smoking, not possible to give Nicotine patch due to ACS 3. History of Hyperlipidemia LDL elevated will need to keep LDL below 70 started on Atorvastatin by Cardiology asked for Hepatic function panel to have baseline. 4. electrolyte derangement replaced DVT prophylaxis SCDs Discharge Planning Discharge home now. Walter Mora MD Oct 27, 2016 09:10
[2016-10-27] MEDS ORDERED: POTASSIUM CHLORIDE 20 MEQ CONTROLLED RELEASE TAB PO ONE (09:15)
--- NOTE | 2016-10-27 09:34 | PD.CARD.PN ---
Subjective Subjective Remarks No angina Objective Medications Current Medications Medications (Trade) Dose Ordered Sig/Giulia Route Start Time Stop Time Status Last Admin (NS Flush) 2 ml UNSCH PRN IVF 10/25/16 10:00 (NS Flush) 2 ml UNSCH PRN IV FLUSH 10/25/16 11:00 (NS Flush) 2 ml BID IV FLUSH 10/25/16 21:00 10/26/16 21:50 (Tylenol) 325 mg Q4H PRN PO 10/25/16 11:00 10/27/16 03:11 (Percocet 5-325 Mg) 1 tab Q4H PRN PO 10/25/16 11:00 (Restoril) 15 mg HS PRN PO 10/25/16 11:00 (Aspirin Chew) 81 mg DAILY PO 10/26/16 09:00 10/27/16 09:07 Ticagrelor 90 mg 90 mg BID PO 10/26/16 09:00 10/27/16 09:07 (Nitroglycerin-Dextrose Inj) 250 ml @ 0 mls/hr TITRATE IV 10/25/16 11:00 (Zofran Inj) 4 mg Q4H PRN IV 10/25/16 11:00 10/25/16 19:59 (Coreg) 3.125 mg Q8HR PO 10/25/16 14:00 10/27/16 06:11 (Prinivil) 5 mg DAILY PO 10/26/16 09:00 10/27/16 09:00 (Mucinex Er) 600 mg BID PO 10/25/16 21:00 10/27/16 09:00 Atorvastatin Calcium 40 mg 40 mg DAILY PO 10/27/16 09:00 10/27/16 09:07 (NS 1000 ml Inj) 1,000 ml @ 125 mls/hr Q8H IV 10/26/16 15:00 10/27/16 09:00 Vital Signs / I&O Vital Signs Date Time Temp Pulse Resp B/P Pulse Ox O2 Delivery O2 Flow Rate FiO2 10/27/16 07:58 98 10/27/16 07:00 79 10/27/16 06:00 86 10/27/16 05:00 71 10/27/16 04:00 75 10/27/16 03:00 97.8 86 18 83/68 97 10/27/16 03:00 89 10/27/16 02:00 74 10/27/16 01:00 81 10/27/16 00:00 86 10/26/16 23:00 80 10/26/16 23:00 98.7 80 18 98/70 96 10/26/16 22:00 80 10/26/16 21:00 76 10/26/16 20:00 94 10/26/16 19:48 95 10/26/16 19:00 98.7 81 18 93/67 98 10/26/16 19:00 93 10/26/16 16:00 98.6 97 18 124/71 95 10/26/16 12:00 98.2 85 18 96/70 97 10/26/16 11:56 99 I/O 10/26/16 10/26/16 10/26/16 10/27/16 10/27/16 10/27/16 07:00 15:00 23:00 07:00 15:00 23:00 Intake Total 240 ml 720 ml Output Total 600 ml Balance -360 ml 720 ml Intake Oral 240 ml 720 ml Output Urine Total 600 ml # Voids 2 Physical Exam GENERAL: Well developed, well nourished. No acute distress. HEENT: Jugular venous pressure is normal. CHEST: Lungs clear to auscultation bilaterally. Unlabored respiratory effort. CARDIAC: Regular rate and rhythm without S3, S4, or murmur. ABDOMEN: Soft, nontender, no hepatosplenomegaly. Bowel sounds present. EXTREMITIES: No clubbing, cyanosis, or edema. Right groin OK Laboratory Laboratory Tests Test 10/26/16 10/26/16 10/27/16 15:33 18:58 06:24 Phosphorus Level 3.1 MG/DL Magnesium Level 2.1 MG/DL Total Bilirubin 0.2 MG/DL Direct Bilirubin 0.1 MG/DL Indirect Bilirubin 0.1 MG/DL Aspartate Amino Transf 152 U/L (AST/SGOT) Alanine Aminotransferase 51 U/L (ALT/SGPT) Alkaline Phosphatase 86 U/L Total Protein 6.5 GM/DL Albumin 3.2 GM/DL Potassium Level 3.6 MEQ/L Assessment and Plan Problem List: (1) ST elevation (STEMI) myocardial infarction involving right coronary artery Assessment and Plan: S/p stent. Late presentation (2) Tobacco abuse Assessment and Plan: counseled (3) Stented coronary artery Assessment and Plan: Cont ASA 81 + Brilinta 90 bid (4) Hypokalemia (5) Hyperlipidemia Assessment and Plan: statin started Assessment and Plan OK to DC home. OV with me 2 weeks. No strenuous activity. Yang Myrick MD Oct 27, 2016 09:34
[2016-10-27 10:00] LABS: CKMB 8.2 NG/ML (0.5-3.6)
[2016-10-27] MEDS ORDERED: ATOR40TA16 PO ×2 (14:33→14:37)
[2016-10-27] MEDS ORDERED: CARV3.125 PO ×2 (14:33→14:37)
[2016-10-27] MEDS ORDERED: LISI-519 PO ×2 (14:33→14:37)
[2016-10-27] MEDS ORDERED: BRIL90TA PO ×2 (14:33→14:37)
[2016-10-27] MEDS ORDERED: ASPI81CH25 PO ×2 (14:33→14:37)
--- NOTE | 2016-10-27 14:42 | HHI.DS ---
Discharge Summary Admission Date Oct 25, 2016 at 10:03 Discharge Date: Oct 27, 2016 Admitting Diagnosis STEMI (1) ST elevation (STEMI) myocardial infarction involving right coronary artery ICD Code: I21.11 Diagnosis: Principal (2) Tobacco abuse ICD Code: Z72.0 Diagnosis: Principal (3) Hyperlipidemia ICD Code: E78.5 Diagnosis: Principal (4) Hypokalemia ICD Code: E87.6 Diagnosis: Principal Procedures Cardiac catheterization with stent Brief History - From Admission This is a pleasant 56 y/o Female with previous CAD, presents to the ER today brought in by her son because of chest pains that started at 2 PM yesterday, Seen by wound specialist with Diagnosis of Acute Inferoposterior [place], as per Cardiology record the patient Angioplasty early after 1989, Cardiac Catheterization October, EKG with inferoposterior STEMI with ST segment elevation inferiorly as well as V5-V6 and ST depression in AVL and V2 , Status post PCI and Right Coronary Artery Stent, recommended to continue Aspirin, Brilinta, NANO inhibitor and Beta Blockers started, Seen in her bedroom no complaint, denies chest pain. strongly recommended to stop smoking, get good habits exercise and diet. CBC/BMP: 10/26/16 0356 10/27/16 0624 Significant Findings Laboratory Tests Test 10/25/16 10/26/16 10/26/16 10/27/16 09:55 03:56 18:58 06:24 White Blood Count 15.7 TH/MM3 14.7 TH/MM3 (4.0-11.0) (4.0-11.0) Hemoglobin 16.9 GM/DL (11.6-15.3) Bedside Hemoglobin 17.3 G/DL (12.0-17.0) Hematocrit 49.7 % (35.0-46.0) Neutrophils (%) (Auto) 78.0 % (16.0-70.0) Neutrophils # (Auto) 12.2 TH/MM3 10.1 TH/MM3 (1.8-7.7) (1.8-7.7) Activated Partial 23.1 SEC Thromboplast Time (24.3-30.1) Bedside Potassium 3.1 MMOL/L (3.5-4.9) Bedside Glucose 153 MG/DL (60-95) Calcium Level 10.8 MG/DL (8.5-10.1) Creatine Kinase MB 20.6 NG/ML 120.9 NG/ML 8.2 NG/ML (0.5-3.6) (0.5-3.6) (0.5-3.6) Troponin I 1.78 NG/ML (0.02-0.05) B-Type Natriuretic Peptide 131 PG/ML (0-100) Monocytes (%) (Auto) 8.9 % (0.0-8.0) Monocytes # (Auto) 1.3 TH/MM3 (0-0.9) Potassium Level 2.9 MEQ/L (3.5-5.1) Total Creatine Kinase 1153 U/L 218 U/L (26-192) (26-192) Creatine Kinase MB % 10.5 % (0.0-4.0) Triglycerides Level 317 MG/DL (42-150) Cholesterol Level 214 MG/DL (120-200) LDL Cholesterol 122 MG/DL (0-99) HDL Cholesterol 28.3 MG/DL (40.0-60.0) Aspartate Amino Transf 152 U/L (15-37) (AST/SGOT) Albumin 3.2 GM/DL (3.4-5.0) Imaging Last Impressions Chest X-Ray 10/25/16 0955 Signed Impressions: Service Date/Time: Tuesday, October 25, 2016 09:58 - CONCLUSION: Normal examination. Tom Pearce Jr., MD PE at Discharge GENERAL: Well-developed, no acute distress. SKIN: Focused skin assessment warm/diaphoretic. HEAD: Atraumatic. Normocephalic. EYES: Pupils equal and round. No scleral icterus. No injection or drainage. ENT: No nasal bleeding or discharge. Mucous membranes pink and moist. NECK: Trachea midline. No JVD. CARDIOVASCULAR: Regular rate and rhythm. No murmur appreciated. Pulses are present and equal bilaterally. RESPIRATORY: No accessory muscle use. Clear to auscultation. Breath sounds equal bilaterally. GASTROINTESTINAL: Abdomen soft, non-tender, nondistended. Hepatic and splenic margins not palpable. MUSCULOSKELETAL: No obvious deformities.Right inguinal area dressed, no hemorrhage, no ecchymosis. NEUROLOGICAL: Awake and alert. No obvious cranial nerve deficits. Motor grossly within normal limits. Normal speech. PSYCHIATRIC: Appropriate mood and affect; insight and judgment normal. Hospital Course This is a pleasant 56 y/o Female with previous CAD, presents to the ER today brought in by her son because of chest pains that started at 2 PM yesterday, Seen by wound specialist with Diagnosis of Acute Inferoposterior [place], as per Cardiology record the patient Angioplasty early after 1989, Cardiac Catheterization October, EKG with inferoposterior STEMI with ST segment elevation inferiorly as well as V5-V6 and ST depression in AVL and V2 , Status post PCI and Right Coronary Artery Stent, recommended to continue Aspirin, Brilinta, NANO inhibitor and Beta Blockers started, Seen in her bedroom no complaint, denies chest pain. strongly recommended to stop smoking, get good habits exercise and diet. 10/27: Seen in her bedroom, already recommended for discharge by wound specialist, status post cardiac Cath and stent placement, will continue Aspirin and Brilinta given scripts. no chest pain, no hemorrhage bruit or ecchymosis on right inguinal area. follow with wound specialist in two weeks. Assessment and Plan 1. STEMI as Acute Inferoposterior [place], as per Cardiology record the patient Angioplasty early after 1989, Cardiac Catheterization October, EKG with inferoposterior STEMI with ST segment elevation inferiorly as well as V5-V6 and ST depression in AVL and V2, Status post PCI and Right Coronary Artery Stent, recommended to continue Aspirin, Brilinta, NANO inhibitor and Beta Blockers started. okay to discharge by wound specialist. 2. Tobacco dependence strongly recommended to stop smoking, not possible to give Nicotine patch due to ACS 3. History of Hyperlipidemia LDL elevated will need to keep LDL below 70 started on Atorvastatin by Cardiology asked for Hepatic function panel to have baseline. 4. electrolyte derangement replaced DVT prophylaxis SCDs Discharge Planning Discharge home now. Pt Condition on Discharge: Good Discharge Disposition: Discharge Home Discharge Time: <= 30 minutes Discharge Instructions DIET: Follow Instructions for: Heart Healthy Diet Activities you can perform: Regular-No Restrictions Walter Mora MD Oct 27, 2016 14:42
[2016-10-27] MEDS ORDERED: CARVEDILOL 3.125 MG TAB PO SCH (21:00)
== END 2016-10-27 15:15 | disposition home or self-care (01) | DRG 247 ==
LOC: NEPE 09:28 → HCIS 10:03
PROVIDERS: ADMIT Internal Medicine; ATTEND Internal Medicine
PROC: 027034Z Dilation of Coronary Artery, One Artery with Drug-eluting Intraluminal Device, Percutaneous Approach (ICD-10-PCS; principal; 2016-10-25)
PROC: 4A023N7 Measurement of Cardiac Sampling and Pressure, Left Heart, Percutaneous Approach (ICD-10-PCS; 2016-10-25)
PROC: B2111ZZ Fluoroscopy of Multiple Coronary Arteries using Low Osmolar Contrast (ICD-10-PCS; 2016-10-25)
PROC: B2151ZZ Fluoroscopy of Left Heart using Low Osmolar Contrast (ICD-10-PCS; 2016-10-25)
PROC: B41F1ZZ Fluoroscopy of Right Lower Extremity Arteries using Low Osmolar Contrast (ICD-10-PCS; 2016-10-25)
DX: I21.11 ST elevation (STEMI) myocardial infarction involving right coronary artery (principal); I21.19 ST elevation (STEMI) myocardial infarction involving other coronary artery of inferior wall; I25.119 Atherosclerotic heart disease of native coronary artery with unspecified angina pectoris; E78.5 Hyperlipidemia, unspecified; F10.10 Alcohol abuse, uncomplicated; F17.210 Nicotine dependence, cigarettes, uncomplicated; Z82.49 Family history of ischemic heart disease and other diseases of the circulatory system; Z80.9 Family history of malignant neoplasm, unspecified; E87.6 Hypokalemia
CPT/HCPCS: 71010; 80048; 80061; 80076; 82310; 82435; 82550; 82552; 82565; 82607; 82652; 82947; 83735; 83880; 84100; 84132; 84295; 84439; 84443; 84484; 84520; 85025; 85610; 85730; 92941; 93005; 93458; 94150; 94640; 94664; 99285; C1725; C1760; C1769; C1874; C1887; C1893; G0269; J0583; J1644; J2250; J2270; J2405; J3480; J7030; J7644; Q9967